=== PATIENT | male | born 1940 | race African-American/Black ===

== ENCOUNTER 2017-09-20 13:50 | Emergency (ER) | payer OTHER ==
[~2017-09-20] VITALS: Ht 170.2 cm; Wt 59.0 kg
--- NOTE | ~2017-09-20 | EKG ---
[address] [address] [place] [address] ELECTROCARDIOGRAM REPORT Name: ANDRY WYNNE Room #: KARLA Pedraza#: [id number] Admission: 09/20/17 Attend Phys: Discharge: Date of : 38 Report #: [id number] THIS REPORT FOR: //name// [facility] ED Test Date: 2017-09-20 Test Time: 14:40:08 Pat Name: ANDRY WYNNE Department: Room: Gender: M [employer] Operator: ISH : 1940 Requested By: Pawan Cantu Order Number: [id number] MD: Calvin Suazo Measurements Intervals Jones Rate: 101 P: AK: QRS: 65 QRSD: 84 T: 30 QT: 408 QTc: 529 Interpretive Statements Atrial fibrillation Nonspecific ST segment abnormality Baseline wander in lead(s) V1 No previous ECG available for comparison Electronically Signed On 09-20-2017 16:08:31 AREA SECRETARY by Calvin Suazo [email or web address] <ELECTRONICALLY SIGNED> By: Calvin Suazo MD, [facility] 09/20/17 1608 1440 1440 Calvin Suazo MD, FACC /EPI
[2017-09-20] MEDS ORDERED: BENAZEPRIL 10 M10 MG PO (14:16)
[2017-09-20] MEDS ORDERED: LOPRESSOR25 PO (14:16)
[2017-09-20] MEDS ORDERED: FLOMAX0.4 MG PO (14:21)
[2017-09-20] MEDS ORDERED: KEPPRA 500 MG500 M1 PO (14:21)
[2017-09-20 14:32] LABS: HEMATOCRIT 31.9 % (42.0-52.0); HEMOGLOBIN 10.9 gm/dL (14.0-18.0); MCH 33.4 pg (26.0-34.0); MCHC 34.3 g/dL (28.0-37.0); MCV 97.5 fL (80.0-100.0); PLATELET COUNT 249 thou/uL (150-400); RBC 3.27 mil/uL (4.50-6.00); RDW 13.8 % (10.5-14.5); WBC 6.2 thou/uL (4.0-11.0)
[2017-09-20 14:36] LABS: CALCIUM 8.4 mg/dL (8.5-10.1); POTASSIUM 3.7 mmol/L (3.5-5.1)
[2017-09-20 14:45] LABS: ALBUMIN 2.3 g/dL (3.4-5.0); MAGNESIUM 1.5 mg/dL (1.8-2.4); TOTAL BILIRUBIN 0.8 mg/dL (<0.1-1.0); TOTAL PROTEIN 6.2 g/dL (6.4-8.2); TROPONIN-I 0.05 ng/mL (<0.06)
[2017-09-20 14:51] LABS: BE(vivo) 1.3 mmol/L (-2 to +3); PCO2 31.5 mmHg (35.0-45.0); PO2 113.2 mmHg (80.0-100.0); sO2 98.5 % (92.0-98.0)
[2017-09-20 14:57] LABS: ABSOLUTE NEUTROPHILS 4.8 thou/uL (1.4-8.2)
[2017-09-20 14:58] LABS: ANISOCYTOSIS 1+
[2017-09-20 14:59] LABS: POLYCHROMASIA OCCASIONAL
[2017-09-20 15:00] LABS: APTT 31.4 Seconds (24.5-32.8); INR 1.2; PROTIME 11.6 Seconds (9.3-11.4)
[2017-09-20 17:53] LABS: URINE BILIRUBIN NEGATIVE (Negative); URINE BLOOD 3+ (Negative); URINE CLARITY SL CLOUDY; URINE GLUCOSE-RANDOM* NEGATIVE (Negative); URINE KETONES TRACE (Negative); URINE NITRITE-REFLEX NEGATIVE (Negative); URINE PROTEIN (DIPSTICK) TRACE (Negative); URINE SPECIFIC GRAVITY >= 1.030 (1.005-1.035)
[2017-09-20 17:54] LABS: URINE COLOR SL PINK; URINE LEUKOCYTES-REFLEX 1+ (Negative)
[2017-09-20 18:00] LABS: AMP/METHAMP Negative (Negative); BARBITURATES Negative (Negative); BENZODIAZEPINES Negative (Negative); COCAINE Negative (Negative); METHADONE Negative (Negative); OPIATES Negative (Negative); PCP Negative (Negative)
[2017-09-20 18:01] LABS: SQUAMOUS 0-3 Few /LPF (0-3); URINE RBC >20 Many /HPF (0-2)
[2017-09-20 18:02] LABS: BACTERIA-REFLEX 1-9 Few /HPF (None Seen); CASTS None Seen /LPF (None Seen); CRYSTALS None Seen /LPF (None Seen); URINE WBC-REFLEX 0-5 Rare /HPF (0-5)
[2017-09-20 18:45] VITALS: BP 145/100
== END 2017-09-20 18:20 | disposition short-term general hospital (02) ==
LOC: ER 13:50
PROVIDERS: Emergency Medicine
DX: R41.82 Altered mental status, unspecified (principal); I62.03 Nontraumatic chronic subdural hemorrhage; R31.9 Hematuria, unspecified; E87.3 Alkalosis; E83.42 Hypomagnesemia; Z88.0 Allergy status to penicillin

== ENCOUNTER 2017-11-26 20:24 | Emergency (ER) | payer OTHER ==
[~2017-11-26] VITALS: Ht 170.2 cm; Wt 54.4 kg
[~2017-11-26 20:24] MED LIST: BENAZEPRIL 10 M10 MG PO; FLOMAX0.4 MG PO; KEPPRA 500 MG500 M1 PO; LOPRESSOR25 PO
[2017-11-26] MEDS ORDERED: CARDIZEM CD120 MG PO (20:41)
[2017-11-26 20:48] LABS: ABSOLUTE NEUTROPHILS 7.2 thou/uL (1.4-8.2); BASOPHILS 0.8 % (0.0-2.0); EOSINOPHILS 1.4 % (0.0-3.0); HEMATOCRIT 24.4 % (42.0-52.0); HEMOGLOBIN 8.3 gm/dL (14.0-18.0); LYMPHOCYTES 16.1 % (24.0-44.0); MCH 30.5 pg (26.0-34.0); MCHC 34.1 g/dL (28.0-37.0); MCV 89.4 fL (80.0-100.0); MONOCYTES 7.9 % (1.0-8.0); PLATELET COUNT 356 thou/uL (150-400); POLYS 73.8 % (36.0-66.0); RBC 2.73 mil/uL (4.50-6.00); RDW 13.8 % (10.5-14.5); WBC 9.8 thou/uL (4.0-11.0)
[2017-11-26] MEDS ORDERED: ATIVAN0.5 MG PO (20:52)
[2017-11-26] MEDS ORDERED: TRAZODONE HCL50 MG PO (20:54)
[2017-11-26 21:06] LABS: CALCIUM 9.4 mg/dL (8.5-10.1); CREATININE 1.1 mg/dL (0.7-1.3); POTASSIUM 4.8 mmol/L (3.5-5.1)
[2017-11-26 21:55] VITALS: BP 110/74
== END 2017-11-26 23:56 ==
LOC: ER 20:24
PROVIDERS: Emergency Medicine
DX: S01.111A Laceration without foreign body of right eyelid and periocular area, initial encounter (principal); Z88.0 Allergy status to penicillin; W07.XXXA Fall from chair, initial encounter; Y93.89 Activity, other specified; Y92.89 Other specified places as the place of occurrence of the external cause; Y99.8 Other external cause status